=== PATIENT | female | born 1960 | race Caucasian/White ===

== ENCOUNTER 2023-09-04 06:54 | Day surgery (SDC) | payer OTHER ==
[~2023-09-04] VITALS: Ht 157.5 cm; Wt 52.3 kg
[2023-09-04] MEDS ORDERED: LIDOCAINE 2% 11 ML JELLY TP ONE (06:55)
[2023-09-04] MEDS ORDERED: LIDOCAINE 4% 50 ML SOLUTION TP ONE (06:55)
[2023-09-04] MEDS ORDERED: ALBUTEROL SULFATE 2.5 MG/0.5 ML NEB SOLUTION NEB ONE (06:55)
[2023-09-04] MEDS ORDERED: BENZOCAINE 20% 50 MCG/SPRAY 57 GM TP ONE (06:55)
[2023-09-04] MEDS ORDERED: NALOXONE HCL 0.4 MG/ML VIAL ONE (07:18)
[2023-09-04] MEDS ORDERED: SODIUM TETRADECYL SULFATE 3% 60 MG/2 ML VIAL IVP ONE (07:18)
[2023-09-04] MEDS ORDERED: MIDAZOLAM HCL 2 MG/2 ML VIAL ONE (07:18)
[2023-09-04] MEDS ORDERED: FentaNYL CITRATE PF 100 MCG/2 ML VIAL ONE (07:18)
[2023-09-04] MEDS ORDERED: DiphenhydrAMINE HCL 50 MG/ML VIAL ONE (07:18)
[2023-09-04] MEDS ORDERED: FLUMAZENIL 0.1 MG/ML 5 ML VIAL IVP ONE (07:18)
[2023-09-04] MEDS ORDERED: EPINEPHrine 1:10,000 [1 MG/10 ML] SYRINGE ONE (07:18)
[2023-09-04] MEDS ORDERED: ATROPINE SULFATE 0.1 MG/ML 10 ML SYRINGE IVP ONE (07:19)
[2023-09-04 07:50] LABS: GLUCOMETER DEV NAME(LOC) SDS.; GLUCOSE,POINT OF CARE 110 MG/DL (70-110)
[2023-09-04] MEDS ORDERED: SODIUM CHLORIDE 0.9% 1,000 ML IV ONE (09:00)
[2023-09-04] MEDS ORDERED: MethylPREDNISolone SOD SUCC 125 MG/2 ML VIAL IVP ONE (09:00)
[2023-09-04] MEDS ORDERED: MethylPREDNISolone SOD SUCC 125 MG/2 ML VIAL ONE (09:27)
[2023-09-04 09:33] VITALS: PULSE 86; RESP 19; O2SAT 95
== END 2023-09-04 11:45 | disposition home or self-care (01) ==
LOC: SURGERY 06:54
PROVIDERS: ATTEND Internal Medicine Critical Care Medicine
DX: J38.4 Edema of larynx (principal); B37.0 Candidal stomatitis; I10 Essential (primary) hypertension; Z79.899 Other long term (current) drug therapy; Z87.01 Personal history of pneumonia (recurrent)
CPT/HCPCS: 31623; 88112; 82962; 87206; 87101; 87220; 87070; 31624; 94640; 71045; 87015; J0461; J1200; J0171; J3010; J3490; J2250; J2930; J2310; Q9967; J7613; Z7610